=== PATIENT | female | born 1955 | race Caucasian/White ===

== ENCOUNTER 2022-04-02 19:25 | Inpatient (IN) | payer MEDICARE, OTHER ==
[~2022-04-02] VITALS: Ht 162.6 cm; Wt 76.2 kg
--- NOTE | 2022-04-02 19:45 | NUR ---
received from [facility] via ambulance alert and orientated right great toes black in color and with a foul smell gauze dressing on photo taken right dempsey with wound black with gauze dressing photo taken wound consult ordered doesn't remember the name of the medication for the right great toe infection she is taking texted COMPUTER PROGRAMMER ANALYST CHIO PATEL to make her aware the patient has arrived from [place] she has acknowledged the order
[2022-04-02 20:00] VITALS: BP 159/83
[2022-04-02 21:11] VITALS: BP 159/83
[2022-04-02] MEDS ORDERED: MORPHINE SULFATE INJ 2 MG/ML DISP.SYRIN IV PRN (23:30)
[2022-04-02] MEDS ORDERED: ZOLPIDEM TARTRATE 5 MG TABLET PO PRN (23:30)
[2022-04-02] MEDS ORDERED: ONDANSETRON HCL/PF 4 MG/2 ML VIAL IVP PRN (23:30)
[2022-04-02] MEDS ORDERED: Z GUARD REMEDY 4 OZ OINT TP PRN (23:30)
[2022-04-02] MEDS ORDERED: MAG HYDROX/AL HYDROX/SIMETH 30 ML UDC PO PRN (23:30)
[2022-04-02] MEDS ORDERED: MAGNESIUM HYDROXIDE 30 ML UDC PO PRN (23:30)
[2022-04-02] MEDS ORDERED: ACETAMINOPHEN 325 MG TABLET PO PRN (23:30)
[2022-04-02] MEDS: IV NS 0.9% 1,000 ML IV PRN (23:40)
[2022-04-02] MEDS: HYDROCODONE/APAP 10/325MG TABLET PO PRN (23:47)
[2022-04-03] MEDS ORDERED: VANCOMYCIN 1 GM VIAL ONE (01:18)
[2022-04-03] MEDS ORDERED: VANCOMYCIN 1 GM in IV D5W 250ml IV ONE (01:30)
[2022-04-03] MEDS ORDERED: CEFEPIME 1 GM VIAL ONE (01:38)
[2022-04-03] MEDS: CEFEPIME 1 GM in IV D5W 50 ML IV SCH ×2 (01:49→21:33)
--- NOTE | 2022-04-03 06:33 | NUR ---
RN CLOSING NOTES: ALERT AND ORIENTATED X4 ALARM INSTALLATION TECHNICIAN CHIO CAME TO SEE PATIENT LAST NIGHT RIGHT FOOT COOL TO TOUCH RIGHT GREAT TOE BLACK AND COLD TO TOUCH DRESSING CDI RIGHT LOWER LEG WOUND WITH ESHCAR WITH CHELSEA AREA RED SURRONDING MEDICATED X1 WITH NORCO AND EFFECTIVE PT SLEPT SHE STATES SHE CAN'T SLEEP D/T THE PATIENT IN THE 1ST BED "STINKS" AND PEOPLE AROUND ARE TOO NOISY WHEN ROUNDS MADE PT WAS ASLEEP EACH TIME RESP EVEN AND UN;ABORED VANCO 1ST DOSE GIVEN AND MAXIPIMI GIVEN ORDERED
[2022-04-03 07:00] VITALS: BP_SYST 100; BP_SYST 145; BP_DIAS 58; BP_DIAS 76
--- NOTE | 2022-04-03 07:10 | NUR ---
RN OPENING NOTES: PATIENT ALERT AND ORIENTATED X4 RIGHT FOOT COOL TO TOUCH RIGHT GREAT TOE BLACK AND COLD TO TOUCH DRESSING CDI RIGHT LOWER LEG WOUND WITH ESHCAR WITH CHELSEA AREA RED SURRONDING SAFETY PROTOCOLS IN PLACED, BED IN LOW POSITION, SIDE RAILS X2 UP, CALL LIGHT WITHIN REACH. WILL CONTINUE TO MONITOR THE PATIENT.
--- NOTE | 2022-04-03 08:52 | NUR ---
WOUND CARE CONSULT: PT PRESENTS WITH NECROTIC AREAS TO RT LOWER LEG (WITH ODOR), RT HEEL AND RT GREAT TOE, ALL PRESENT ON ADMISSION. DR NESS CALLED FOR DPM CONSULT. IN AGREEMENT WITH PLAN OF CARE.
[2022-04-03] MEDS ORDERED: CLIN300C12 PO (11:06)
[2022-04-03] MEDS ORDERED: CARV6.252 PO (11:06)
[2022-04-03] MEDS ORDERED: LEVO750T46 PO (11:06)
[2022-04-03 14:35] LABS: BASOPHILS % (AUTO) 0.2 % (0.0-2.0); EOSINOPHILS % (AUTO) 1.5 % (0.0-6.0); HEMATOCRIT 34 % (33-45); HEMOGLOBIN 10.7 g/dL (11.5-14.8); LYMPHOCYTES # (AUTO) 0.6 K/uL (0.8-4.8); LYMPHOCYTES % (AUTO) 6.4 % (20.0-44.0); MEAN CORPUSCULAR HGB CONC 32 g/dl (31.0-36.0); MEAN CORPUSCULAR VOLUME 81 fL (82-100); MONOCYTES # (AUTO) 0.7 K/uL (0.1-1.30); MONOCYTES % (AUTO) 7.6 % (2.0-12.0); NEUTROPHILS # (AUTO) 7.4 K/uL (1.8-8.9); NEUTROPHILS % (AUTO) 84.3 % (43.0-81.0); PLATELET COUNT (AUTO) 156 K/uL (150-450); RED BLOOD CELL COUNT(AUTO) 4.17 MIL/uL (4.0-5.2); WHITE BLOOD COUNT (AUTO) 8.8 K/uL (4.3-11.0)
[2022-04-03 15:02] LABS: CALCIUM, SERUM 8.1 mg/dL (8.5-10.1); CREATININE 0.8 mg/dL (0.6-1.3); POTASSIUM 3.2 mmol/L (3.5-5.1)
[2022-04-03] MEDS: HYDROCODONE/APAP 10/325MG TABLET PO PRN (15:45)
[2022-04-03] MEDS: PROSOURCE / PROSTAT (PYXIS) 30 ML UDC PO SCH (17:00)
[2022-04-03] MEDS: POVIDONE-IODINE OINT 28.4 GM TUBE TP SCH (18:50)
[2022-04-03] MEDS: VANCOMYCIN 1 GM in IV D5W 250 ML IV SCH (18:53)
--- NOTE | 2022-04-03 19:30 | NUR ---
MS RN OPENING NOTES - RECEIVED PATIENT LAYING IN BED AWAKE. A/OX 4. BREATHING EVEN AND NON-LABORED ON ROOM AIR. NOT IN APPARENT DISTRESS. DENIES PAIN AT THIS TIME. HAS LEFT HAND IV ACCESS #22G WITH NS RUNNING AT 75 ML/HR. NO S/S OF INFILTRATION NOTED. PER PATIENT, SHE USES A CANE AND WHEELCHAIR AT HOME. SHE ALSO REQUESTED FOR PUREWICK. SAFETY PRECAUTIONS IN PLACE: BED LOCKED AND IN LOW POSITION, SIDE RAILS UP X2, CALL LIGHT WITHIN REACH. WILL CONTINUE PLAN OF CARE.
--- NOTE | 2022-04-03 19:30 | NUR ---
MS RN OPENING NOTES - RECEIVED PATIENT LAYING IN BED AWAKE. A/O X4. BREATHING EVEN AND NON-LABORED ON ROOM AIR. NOT IN APPARENT DISTRESS. DENIES PAIN AT THIS TIME. HAS LEFT HAND IV ACCESS #22G WITH NS RUNNING AT 75 ML/HR. NO S/S OF INFILTRATION NOTED. RIGHT LOWER LEG AND TOES IN OPEN AIR. SAFETY PRECAUTIONS IN PLACE: BED LOCKED AND IN LOW POSITION, SIDE RAILS UP X2, CALL LIGHT WITHIN REACH. WILL CONTINUE PLAN OF CARE.
--- NOTE | 2022-04-03 19:35 | NUR ---
RN CLOSING NOTES: PATIENT ALERT AND ORIENTATED X4 RIGHT FOOT COOL TO TOUCH RIGHT GREAT TOE BLACK AND COLD TO TOUCH DRESSING CDI RIGHT LOWER LEG WOUND WITH ESHCAR WITH CHELSEA AREA RED SURRONDING MEDICATED X1 WITH NORCO AND EFFECTIVE,VANCO DOSE GIVEN AND ORDERED. ALL SAFETY PROTOCOLS IN PLACE, ENDORSED TO ONCOMING BACKING IN MACHINE TENDER RN FOR KATHIA.
[2022-04-03] MEDS: IV NS 0.9% 1,000 ML IV PRN (19:59)
[2022-04-03 20:00] VITALS: BP 138/74
--- NOTE | 2022-04-04 01:20 | NUR ---
CALLED X-RAY DEPT TO FOLLOW-UP ON THE RIGHT TIBIA/FIBULA/FOOT X-RAY ORDERED 04/03/22. SPOKE WITH FEMALE TECH AND SAID THEY WILL TAKE IT IN THE MORNING SINCE THEY ARE BUSY IN THE ER.
--- NOTE | 2022-04-04 03:52 | NUR ---
ASKED HOSPITALIST ANDREI IF WE WILL REPLACE THE POTASSIUM SINCE IT IS 3.2. NO NEW ORDER GIVEN.
[2022-04-04] MEDS: VANCOMYCIN 1 GM in IV D5W 250 ML IV SCH ×3 (04:24→17:00)
[2022-04-04 06:47] LABS: BASOPHILS % (AUTO) 0.3 % (0.0-2.0); EOSINOPHILS % (AUTO) 1.4 % (0.0-6.0); HEMATOCRIT 32 % (33-45); HEMOGLOBIN 10.4 g/dL (11.5-14.8); LYMPHOCYTES # (AUTO) 0.7 K/uL (0.8-4.8); LYMPHOCYTES % (AUTO) 8.4 % (20.0-44.0); MEAN CORPUSCULAR HGB CONC 33 g/dl (31.0-36.0); MEAN CORPUSCULAR VOLUME 79 fL (82-100); MONOCYTES # (AUTO) 0.7 K/uL (0.1-1.30); MONOCYTES % (AUTO) 8.7 % (2.0-12.0); NEUTROPHILS # (AUTO) 6.5 K/uL (1.8-8.9); NEUTROPHILS % (AUTO) 81.2 % (43.0-81.0); PLATELET COUNT (AUTO) 154 K/uL (150-450); RED BLOOD CELL COUNT(AUTO) 4.01 MIL/uL (4.0-5.2); WHITE BLOOD COUNT (AUTO) 8.1 K/uL (4.3-11.0)
[2022-04-04 07:00] VITALS: BP 82/56
[2022-04-04 07:01] LABS: CALCIUM, SERUM 8.1 mg/dL (8.5-10.1); CREATININE 0.7 mg/dL (0.6-1.3); PHOSPHORUS 2.9 mg/dL (2.5-4.9); POTASSIUM 2.9 mmol/L (3.5-5.1)
--- NOTE | 2022-04-04 07:01 | NUR ---
UNABLE TO INFUSE VANCO THE PATIENT'S IV IS CLOGGED AND NOT FLUSHING. WILL ENDORSE TO NEXT SHIFT TO GET AN ORDER FOR MIDLINE SINCE PATIENT IS A HARD STICK.
--- NOTE | 2022-04-04 07:05 | NUR ---
MS RN CLOSING NOTES - PATIENT SLEEPING IN BED, EASY TO AROUSE. NO SOB OR NOTED. NO ACUTE DISTRESS THROUGHOUT THE NIGHT. NO C/O PAIN OR DISCOMFORT AT THIS TIME. AFEBRILE. LEFT HAND IV ACCESS NOT WORKING AT THIS MOMENT. ALL DUE MEDS GIVEN AND NEEDS ATTENDED. SAFETY PRECAUTIONS MAINTAINED. WILL ENDORSE TO NEXT SHIFT FOR KATHIA.
--- NOTE | 2022-04-04 07:28 | NUR ---
ABLE TO INFUSE VANCO AT THIS TIME.
[2022-04-04 08:00] VITALS: BP 155/84
[2022-04-04] MEDS: PROSOURCE / PROSTAT (PYXIS) 30 ML UDC PO SCH ×3 (08:51→17:01)
[2022-04-04] MEDS: HYDROCODONE/APAP 10/325MG TABLET PO PRN ×2 (08:51→22:47)
[2022-04-04] MEDS: POVIDONE-IODINE OINT 28.4 GM TUBE TP SCH ×2 (08:52→17:01)
--- NOTE | 2022-04-04 08:52 | NUR ---
PATIENT POTASSIUM TRENDING DOWN FROM 3.2 TO 2.9. REPORTED TO MD. AWAITING NEW ORDERS. JAILENE Perez RN,BSN
[2022-04-04] MEDS ORDERED: POTASSIUM CHLORIDE 20 MEQ TAB.PRT.SR PO SCH (10:30)
[2022-04-04] MEDS ORDERED: POTASSIUM CL. PREMIX PERIPHER. 50 ML IV SCH (10:30)
--- NOTE | 2022-04-04 10:52 | NUR ---
PATIENT ASKED HOME ORGANIZER ABOUT COREG 6.25MG THAT SHE TAKES DAILY AT HOME. HOME ORGANIZER REPORTED TO . AWAITING NEW ORDER. JAILENE Perez RN, BSN
--- NOTE | 2022-04-04 11:00 | NUR ---
NEW ORDERS IN PLACE TO ADMIN POTASSIUM 10MEQ VIA IV X6. AWAITING MIDLINE INSERTION. JAILENE Perez RN, BSN
--- NOTE | 2022-04-04 12:10 | NUR ---
NEW MIDLINE INSERTION TO SMOOTH. POTASSIUM IV CURRENTLY GOING.
[2022-04-04] MEDS: POTASSIUM CL. PREMIX PERIPHER. 50 ML IV SCH ×6 (12:19→18:18)
[2022-04-04 16:00] VITALS: BP 159/85
[2022-04-04] MEDS ORDERED: IODIXANOL 150 ML IV ONE ×2 (16:29→18:21)
[2022-04-04] MEDS ORDERED: IV NS 0.9% 1,000 ML ONE (16:29)
[2022-04-04] MEDS ORDERED: IV SET PRIMARY PUMP SET 1 EA INFUS.SET MC ONE (16:29)
[2022-04-04] MEDS ORDERED: LIDOCAINE HCL/MPF 1% 30 ML VIAL IJ ONE (16:30)
[2022-04-04] MEDS ORDERED: FENTANYL PF 100MCG/2ML AMPUL ONE (17:13)
[2022-04-04] MEDS ORDERED: MIDAZOLAM HCL 2 MG/2ML VIAL ONE (17:13)
[2022-04-04] MEDS ORDERED: HEPARIN SODIUM, PORCINE 5000 UNITS/1 ML VIAL ONE (17:50)
[2022-04-04] MEDS ORDERED: HEPARIN SODIUM, PORCINE 1,000 UNIT/ML VIAL ONE (17:51)
[2022-04-04] MEDS ORDERED: IODIXANOL 320MG/ML 100 ML IV ONE (17:57)
[2022-04-04] MEDS ORDERED: CLOPIDOGREL BISULFATE 300 MG TABLET ONE (18:18)
[2022-04-04] MEDS ORDERED: VERAPAMIL HCL IV 5 MG/2 ML VIAL ONE (18:35)
--- NOTE | 2022-04-04 19:45 | NUR ---
RN OPENING NOTE RECEIVED PATIENT IN BED FROM OR CLINICAL NURSING MANAGER S/P STENT PLACEMENT. PT IS AWAKE, A/O X 4 ABLE TO VERBALIZE NEEDS. ON ROOM AIR, TOLERATING WELL, SATING @ >95%. NO S/SX OF ACUTE RESPI DISTRESS NOTED AT THIS TIME. BREATHING IS EVEN AND UNLABORED. IV ACCESS NOTED ON SMOOTH ML AND LEFT HAND #22G. PATENT, INTACT AND FLUSHES WELL. NO S/SX OF INFILTRATION NOTED. GANGRENE NOTED ON RIGHT LOWER LEG AND R TOES. ALL SAFETY PRECAUTIONS IN PLACE: BED LOCKED AND IN LOW POSITION, SIDE RAILS UP X2, CALL LIGHT WITHIN REACH. WILL CONTINUE TO MONITOR.
--- NOTE | 2022-04-04 20:05 | NUR ---
RN NOTE PUREWICK CATH USED PER PT'S REQUEST. CONNECTED TO SUCTION.
[2022-04-04] MEDS: IV NS 0.9% 1,000 ML IV PRN (20:54)
[2022-04-04] MEDS ORDERED: ATROPINE SULFATE 1 MG/10 ML DISP.SYRIN IV ONE (21:00)
--- NOTE | 2022-04-04 21:00 | NUR ---
RN NOTE PT COMPLAINING OF PAIN ON HER R HEEL. MORPHINE GIVEN ORDERED. PT NOTED TO HAVE SBP >160. HR >100. INFORMED MD FORMING MACHINE UPKEEP MECHANIC, APRESOLINE IV 10 MG IVP X 1. ORDERED. WILL CARRY OUT.
--- NOTE | 2022-04-04 21:10 | NUR ---
RN NOTE DR. DIAS NOTIFIED REGARDING PT'S HIGH BP AND HR. THE REST OF VS WNL. PT IS CALM AND SHOWING NO DISTRESS. WILL CONTINUE TO MONITOR.
[2022-04-04] MEDS: CEFEPIME 1 GM in IV D5W 50 ML IV SCH (21:52)
[2022-04-04] MEDS ORDERED: hydrALAZINE HCL IV 20 MG VIAL IV ONE (22:00)
--- NOTE | 2022-04-04 23:00 | NUR ---
RN NOTE SHEATH REMOVED. MINIMAL BLEEDING NOTED. MANUAL PRESSURE APPLIED FOR 15 MINUTES. WEAK PEDAL PULSE NOTED. WILL CONTINUE TO MONITOR.
[2022-04-05] VITALS (12 sets, daily range): BP systolic 99–161; BP diastolic 61–81
[2022-04-05 04:39] LABS: BASOPHILS # (AUTO) 0.1 K/uL (0.0-0.2); BASOPHILS % (AUTO) 0.7 % (0.0-2.0); EOSINOPHILS % (AUTO) 0.8 % (0.0-6.0); HEMATOCRIT 34 % (33-45); HEMOGLOBIN 11.2 g/dL (11.5-14.8); LYMPHOCYTES # (AUTO) 0.6 K/uL (0.8-4.8); LYMPHOCYTES % (AUTO) 6.8 % (20.0-44.0); MEAN CORPUSCULAR HGB CONC 33 g/dl (31.0-36.0); MEAN CORPUSCULAR VOLUME 80 fL (82-100); MONOCYTES # (AUTO) 0.8 K/uL (0.1-1.30); MONOCYTES % (AUTO) 9.3 % (2.0-12.0); NEUTROPHILS # (AUTO) 6.8 K/uL (1.8-8.9); NEUTROPHILS % (AUTO) 82.4 % (43.0-81.0); PLATELET COUNT (AUTO) 172 K/uL (150-450); RED BLOOD CELL COUNT(AUTO) 4.29 MIL/uL (4.0-5.2); WHITE BLOOD COUNT (AUTO) 8.2 K/uL (4.3-11.0)
[2022-04-05] MEDS: VANCOMYCIN 1 GM in IV D5W 250 ML IV SCH ×2 (04:40→17:35)
[2022-04-05 04:51] LABS: CREATININE 0.7 mg/dL (0.6-1.3); PHOSPHORUS 3.4 mg/dL (2.5-4.9); POTASSIUM 3.6 mmol/L (3.5-5.1)
--- NOTE | 2022-04-05 06:33 | NUR ---
RN CLOSING NOTE PT REMAINED STABLE THE WHOLE NIGHT, NO SIGNIFICANT CHANGE NOTED. DRESSING CHANGED IN THE STENT INSERTION SITE, CLEAN , DRY AND NO BLEEDING. ALL VS WNL. O2 SAT @ >95%. ASSOCIATE MERCHANDISER READS NSR. ALL SAFETY MEASURES MAINTAINED. HOB ELEVATED @ 30 DEG, BED LOCKED, IN LOW POSITION. CALL LIGHT WITHIN REACH. WILL ENDORSE TO AM SHIFT NURSE FOR KATHIA.
--- NOTE | 2022-04-05 07:05 | NUR ---
MATH PROFESSOR OPENING NOTE: RECEIVED PT. IN BED, AWAKE, AOX4, NO COMPLAINTS OF PAIN/DISCOMFORT AT THIS TIME. S/P STENT PLACEMENT YESTERDAY. ON RA, NO S/S OF RESPIRATORY DISTRESS. REAL ESTATE REPRESENTATIVE READS NSR AT THIS TIME. WEAK PULSES NOTED ON L AND R DORSALIS PEDIS VIA DOPPLER, UPPER EXTREMITIES CAP REFILL < 3 SECS. ON PUREWICK, DRAINING CLEAR YELLOW URINE IN CONTAINER. R LOWER LEG DISCOLORATION AND WOUND NOTED WELL NECROTIC R GREAT TOE. WILL DO WOUND TREATMENT ORDERED. PT. HAS SMOOTH MIDLINE WITH NS RUNNING AT 75 ML/HR; ALSO HAS L HAND #22G, PATENT AND SALINE LOCKED. IV SITE DRESSINGS C/D/I WITH NO S/S OF INFILTRATION. SAFETY MEASURES IN PLACE: BED IN LOWEST AND LOCKED POSITION, HOB ELEVATED AT 30 DEGREES, CALL LIGHT WITHIN REACH, SIDE RAILS UPX2, BED ALARM ON. WILL ENCOURAGE FREQUENT REPOSITIONING IN BED AT LEAST Q2H. WILL CONTINUE TO MONITOR PT. FOR ANY CHANGES.
[2022-04-05] MEDS: CLOPIDOGREL BISULFATE 75 MG TABLET PO SCH (08:49)
[2022-04-05] MEDS: PROSOURCE / PROSTAT (PYXIS) 30 ML UDC PO SCH ×3 (08:50→17:34)
[2022-04-05] MEDS: POVIDONE-IODINE OINT 28.4 GM TUBE TP SCH ×2 (08:54→17:33)
[2022-04-05] MEDS: IV NS 0.9% 1,000 ML IV PRN (10:35)
--- NOTE | 2022-04-05 11:30 | NUR ---
ACCOUNTING ASSOCIATE NOTE: DR. CAT'S REELING MACHINE SETUP OPERATOR AT BEDSIDE. MENTIONED PT.'S BP OF SBP AROUND 140'S TO 150'S. WAITING FOR ORDERS. WILL CONTINUE TO MONITOR PT.'S HEMODYNAMIC STATUS.
--- NOTE | 2022-04-05 12:40 | NUR ---
BANANA HANDLERLAB SUPPORT SERVICE TECH NOTE: PT. TRANSFERRED TO TELE ROOM # 323-2 VIA HOSPITAL BED. REPORT GIVEN T0 CERTIFIED GREEN BUILDING ENGINEERASHIA CARTER AT BEDSIDE. PT. IN BED, AWAKE, AOX4, NO COMPLAINTS OF PAIN/DISCOMFORT AT THIS TIME. S/P STENT PLACEMENT YESTERDAY. ON RA, NO S/S OF RESPIRATORY DISTRESS. HOUSEMAN READS NSR SO FAR THIS SHIFT. WEAK PULSES NOTED ON L AND R DORSALIS PEDIS VIA DOPPLER, UPPER EXTREMITIES CAP REFILL < 3 SECS. ON PUREWICK, DRAINED 150 ML CLEAR YELLOW URINE SO FAR. WOUND TREATMENT ORDERED. PT. HAS SMOOTH MIDLINE WITH NS RUNNING AT 75 ML/HR; ALSO HAS L HAND #22G, PATENT AND SALINE LOCKED. IV SITE DRESSINGS C/D/I WITH NO S/S OF INFILTRATION. SAFETY MEASURES MAINTAINED: BED IN LOWEST AND LOCKED POSITION, HOB ELEVATED AT 30 DEGREES, CALL LIGHT WITHIN REACH, SIDE RAILS UPX2, BED ALARM ON. ENCOURAGED FREQUENT REPOSITIONING IN BED AT LEAST Q2H. PT. BELONGINGS, CHART AND MEDICATIONS HANDED OVER TO CERTIFIED GREEN BUILDING ENGINEERASHIA CARTER AT BEDSIDE. ENDORSED CONTINUITY OF CARE. Addendum: 04/05/22 at 1245 by NATALI MARINELLI RN CORRECTION: PT. WENT TO TELE ROOM 321-2.
--- NOTE | 2022-04-05 13:00 | NUR ---
BLOOD SPLATTER ANALYST NOTE RECEIVED PATIENT FROM ICU NURSE, TRANSFERRED ON A BED ACCOMPANIED BY 2 NURSES; PATIENT IS ALERT AND ORIENTED X 4, ABLE TO MAKE NEEDS KNOWN; ON ROOM AIR BREATHING EVENLY AND NO RESPIRATORY DISTRESS NOTED; WITH MIDLINE ACCESS ON SMOOTH WITH IV NS RUNNIGN AT 75 ML/HE INFUSING WELL. AND IV ACCESS ON LEFT HAND G22 -SALINE LOCK; WITH PUREWICK HOOKED DRAINING TO YELLOW COLORED URINE; COMFORT MEASURES PROVIDED. WITH WOUND ON THE RIGHT LOWER EXTREMITY, TREATMENT DONE BY ICU NURSE. SAFETY PRECAUTIONS IMPLEMENTED, BED IN LOW POSITION, LOCKED, SIDE RAILS UP X 2, CALL LIGHT WITHIN REACH; WILL CONTINUE WITH PLAN OF CARE.
--- NOTE | 2022-04-05 17:30 | NUR ---
AGILE TESTER NOTE PATIENT WITH EPISODES OF ELEVATED BP. PATIENT CLAIMS TO HAVE BETA ASHISH AT HOME. HOSPITALIST EMORY NOTIFIED WITH ORDERS READ BACK AND VERIFIED. STARTED PATIENT'S BP MEDICATION ORDERED. IN STABLE CONDITION.
[2022-04-05] MEDS: CARVEDILOL 6.25 MG TABLET PO SCH (17:34)
--- NOTE | 2022-04-05 19:00 | NUR ---
AB INITIO ETL DEVELOPER NOTE PATIENT IS ALERT AND ORIENTED X 4, ABLE TO MAKE NEEDS KNOWN; ON ROOM AIR BREATHING EVENLY AND NO RESPIRATORY DISTRESS NOTED; WITH MIDLINE ACCESS ON SMOOTH WITH IV NS RUNNIGN AT 75 ML/HE INFUSING WELL. AND IV ACCESS ON LEFT HAND G22 -SALINE LOCK; WITH PUREWICK HOOKED DRAINING TO YELLOW COLORED URINE; COMFORT MEASURES PROVIDED. WITH WOUND ON THE RIGHT LOWER EXTREMITY, TREATMENT DONE BY ICU NURSE. SAFETY PRECAUTIONS IMPLEMENTED, BED IN LOW POSITION, LOCKED, SIDE RAILS UP X 2, CALL LIGHT WITHIN REACH; WILL ENDORSE TO NEXT SHIFT FOR CONTINUTIY OF CARE. IN STABLE CONDITION.
--- NOTE | 2022-04-05 19:30 | NUR ---
DRUPAL DEVELOPER OPENING NOTE RECEIVED PATIENT FROM AM NURSE; PATIENT IS ALERT AND ORIENTED X 4, ABLE TO MAKE NEEDS KNOWN; ON ROOM AIR BREATHING EVENLY AND NO RESPIRATORY DISTRESS NOTED; WITH MIDLINE ACCESS ON SMOOTH AND IV ACCESS ON LEFT HAND G22 -SALINE LOCK; WITH PUREWICK HOOKED DRAINING TO YELLOW COLORED URINE; ENCOURAGED VERBALIZATION OF NEEDS; SAFETY PRECAUTIONS IMPLEMENTED, BED IN LOW POSITION, LOCKED, SIDE RAILS UP X 2, CALL LIGHT WITHIN REACH; WILL CONTINUE TO MONITOR THROUGHOUT SHIFT
[2022-04-05] MEDS: CEFEPIME 1 GM in IV D5W 50 ML IV SCH (21:35)
[2022-04-06] VITALS: BP 99/57
[2022-04-06] MEDS: IV NS 0.9% 1,000 ML IV PRN ×2 (02:09→17:52)
[2022-04-06 04:00] VITALS: BP 129/67
[2022-04-06 04:21] LABS: BASOPHILS % (AUTO) 0.4 % (0.0-2.0); EOSINOPHILS % (AUTO) 2.3 % (0.0-6.0); HEMATOCRIT 32 % (33-45); HEMOGLOBIN 10.4 g/dL (11.5-14.8); LYMPHOCYTES # (AUTO) 0.7 K/uL (0.8-4.8); LYMPHOCYTES % (AUTO) 8.3 % (20.0-44.0); MEAN CORPUSCULAR HGB CONC 32 g/dl (31.0-36.0); MEAN CORPUSCULAR VOLUME 80 fL (82-100); MONOCYTES # (AUTO) 0.8 K/uL (0.1-1.30); MONOCYTES % (AUTO) 9.9 % (2.0-12.0); NEUTROPHILS # (AUTO) 6.4 K/uL (1.8-8.9); NEUTROPHILS % (AUTO) 79.1 % (43.0-81.0); PLATELET COUNT (AUTO) 172 K/uL (150-450); RED BLOOD CELL COUNT(AUTO) 4.04 MIL/uL (4.0-5.2)
[2022-04-06 04:38] LABS: CALCIUM, SERUM 7.9 mg/dL (8.5-10.1); CREATININE 0.7 mg/dL (0.6-1.3); PHOSPHORUS 2.8 mg/dL (2.5-4.9)
[2022-04-06] MEDS: VANCOMYCIN 1 GM in IV D5W 250 ML IV SCH (05:04)
--- NOTE | 2022-04-06 07:03 | NUR ---
RAMPMAN CLOSING NOTE PATIENT IS ALERT AND ORIENTED X 4, ABLE TO MAKE NEEDS KNOWN; ON ROOM AIR, TOLERATING WELL, BREATHING EVENLY AND NO RESPIRATORY DISTRESS NOTED; WITH MIDLINE ACCESS ON SMOOTH AND IV ACCESS ON LEFT HAND G22 -SALINE LOCK, INTACT AND PATENT; WITH PUREWICK HOOKED DRAINING TO YELLOW COLORED URINE; ADMINISTERED MEDICATIONS PRESCRIBED; PATIENT'S NEEDS ATTENDED; MONITORED ACCORDINGLY' SAFETY PRECAUTIONS IMPLEMENTED, BED IN LOW POSITION, LOCKED, SIDE RAILS UP X 2, CALL LIGHT WITHIN REACH; WILL ENDORSE TO AM NURSE FOR KATHIA.
[2022-04-06] MEDS: CLOPIDOGREL BISULFATE 75 MG TABLET PO SCH (09:03)
[2022-04-06] MEDS: PROSOURCE / PROSTAT (PYXIS) 30 ML UDC PO SCH ×3 (09:03→17:23)
[2022-04-06] MEDS: POVIDONE-IODINE OINT 28.4 GM TUBE TP SCH ×2 (09:03→17:23)
[2022-04-06] MEDS: CARVEDILOL 6.25 MG TABLET PO SCH ×2 (09:16→17:28)
[2022-04-06] MEDS ORDERED: POTASSIUM CHLORIDE 20 MEQ TAB.PRT.SR PO SCH (10:00)
[2022-04-06] MEDS: POTASSIUM CHLORIDE 20 MEQ TAB.PRT.SR PO SCH ×3 (10:11→12:32)
[2022-04-06] MEDS: VANCOMYCIN 1.25 GM in IV D5W 250 ML IV SCH (17:29)
--- NOTE | 2022-04-06 19:30 | NUR ---
PIPELAYER CLOSING NOTE PATIENT IN BED AWAKE ; A/O X 4, ABLE TO MAKE NEEDS KNOWN; ON ROOM AIR WITH NO SOB OR DISTRESS NOTED ; WITH MIDLINE ACCESS ON SMOOTH WITH NS @75 ML /H RUNNING WELL AND IV ACCESS ON LEFT HAND G22 -SALINE LOCK; WITH PUREWICK HOOKED DRAINING TO YELLOW COLORED URINE; ENCOURAGED VERBALIZATION OF NEEDS; ALL DUE MEDS GIVEN ORDERED , SAFETY PRECAUTIONS IMPLEMENTED, BED IN LOW POSITION, LOCKED, SIDE RAILS UP X 2, CALL LIGHT WITHIN REACH; WOUND TREATMENT DONE AND ENDORSED TO NEXT SHIFT
--- NOTE | 2022-04-06 19:30 | NUR ---
MASTER MERCHANDISER OPENING NOTE RECEIVED PATIENT FROM AM NURSE; PATIENT IS ALERT AND ORIENTED X 4, ABLE TO MAKE NEEDS KNOWN; ON ROOM AIR TOLERATING WELL AND NO RESPIRATORY DISTRESS NOTED; HOOKED TO BEST WORKER; WITH MIDLINE ACCESS ON SMOOTH AND IV ACCESS ON LEFT HAND G22 -SALINE LOCK, INTACT AND PATENT; WITH PUREWICK HOOKED DRAINING TO YELLOW COLORED URINE; ENCOURAGED VERBALIZATION OF NEEDS; SAFETY PRECAUTIONS IMPLEMENTED, BED IN LOW POSITION, LOCKED, SIDE RAILS UP X 3, CALL LIGHT WITHIN EASY REACH; WILL CONTINUE TO MONITOR THROUGHOUT SHIFT
[2022-04-06 20:30] VITALS: BP 133/70
[2022-04-06] MEDS: CEFEPIME 1 GM in IV D5W 50 ML IV SCH (21:26)
[2022-04-06 23:35] VITALS: BP 128/64
[2022-04-07 04:04] VITALS: BP 126/69
[2022-04-07] MEDS: VANCOMYCIN 1.25 GM in IV D5W 250 ML IV SCH ×2 (04:50→16:59)
--- NOTE | 2022-04-07 06:40 | NUR ---
FIREFIGHTER CLOSING NOTE PATIENT IN BED, ALERT AND ORIENTED X 4, ON ROOM AIR, TOLERATING WELL AND NO RESPIRATORY DISTRESS NOTED; ON TELE MONITORING CURRENTLY READING SINUS RHYTHM 80-90S BPM; WITH MIDLINE ACCESS ON SMOOTH AND IV ACCESS ON LEFT HAND G22 -SALINE LOCK, BOTH ARE INTACT AND PATENT; WITH PUREWICK IN PLACE DRAINING TO YELLOW COLORED URINE; ADMINISTERED MEDICATIONS PRESCRIBED; PATIENT'S NEEDS ATTENDED; MONITORED ACCORDINGLY; SAFETY PRECAUTIONS IMPLEMENTED, BED IN LOW POSITION, LOCKED, SIDE RAILS UP X 2, CALL LIGHT WITHIN REACH; WILL ENDORSE TO AM NURSE FOR KATHIA.
[2022-04-07 07:03] LABS: CREATININE 0.7 mg/dL (0.6-1.3); POTASSIUM 3.3 mmol/L (3.5-5.1)
--- NOTE | 2022-04-07 07:40 | NUR ---
VISUAL MERCHANDISING COORDINATOR OPENING NOTE RECEIVED PATIENT IN BED ASLEEP BUT AROUSABLE ; A/O X 4, ABLE TO MAKE NEEDS KNOWN; ON ROOM AIR WITH NO SOB OR DISTRESS NOTED ; WITH MIDLINE ACCESS ON SMOOTH WITH NS @75 ML /H RUNNING WELL AND IV ACCESS ON LEFT HAND G22 -SALINE LOCK; WITH PUREWICK HOOKED DRAINING TO YELLOW COLORED URINE; ENCOURAGED VERBALIZATION OF NEEDS; SAFETY PRECAUTIONS IMPLEMENTED, BED IN LOW POSITION, LOCKED, SIDE RAILS UP X 2, CALL LIGHT WITHIN REACH; WILL CONTINUE TO MONITOR THROUGHOUT SHIFT
[2022-04-07 08:00] VITALS: BP 144/70
[2022-04-07] MEDS: PROSOURCE / PROSTAT (PYXIS) 30 ML UDC PO SCH ×3 (09:23→16:58)
[2022-04-07] MEDS: CARVEDILOL 6.25 MG TABLET PO SCH ×2 (09:24→16:58)
[2022-04-07] MEDS: CLOPIDOGREL BISULFATE 75 MG TABLET PO SCH (09:24)
[2022-04-07] MEDS ORDERED: POTASSIUM CHLORIDE 20 MEQ TAB.PRT.SR PO ONE (10:00)
[2022-04-07] MEDS: POVIDONE-IODINE OINT 28.4 GM TUBE TP SCH ×2 (10:16→16:57)
[2022-04-07] MEDS: IV NS 0.9% 1,000 ML IV PRN (13:23)
[2022-04-07 16:00] VITALS: BP 133/71
--- NOTE | 2022-04-07 19:05 | NUR ---
BELL MAKER CLOSING NOTES PATIENT IN BED AWAKE ; A/O X 4, ABLE TO MAKE NEEDS KNOWN; ON ROOM AIR WITH NO SOB OR DISTRESS NOTED ; WITH MIDLINE ACCESS ON SMOOTH WITH NS @75 ML /H RUNNING WELL AND IV ACCESS ON LEFT HAND G22 -SALINE LOCK; WITH PUREWICK HOOKED DRAINING TO YELLOW COLORED URINE; ENCOURAGED VERBALIZATION OF NEEDS; ALL DUE MEDS GIVEN ORDERED , SAFETY PRECAUTIONS PROVIDED , BED IN LOW POSITION, LOCKED, SIDE RAILS UP X 2, CALL LIGHT WITHIN REACH; WILL ENDORSED TO NEXT SHIFT
--- NOTE | 2022-04-07 19:43 | NUR ---
FUR EXAMINER OPENING NOTES; RECEIVED PATIENT IN BED AWAKE, A/OX 4, ABLE TO MAKE NEEDS KNOWN; ON ROOM AIR LUIS F WELL,SATTING 97%,NO SIGN SOB/DISTRESS NOTED,NO COMPLAIN OF PAIN/DISCOMFORT AT THIS TIME,WITH MIDLINE ACCESS ON SMOOTH WITH NS @75 ML /H RUNNING WELL AND IV ACCESS ON LEFT HAND G22 -SALINE LOCK,WITH PUREWICK HOOKED DRAINING TO YELLOW COLORED URINE,SAFETY PRECAUTIONS PROVIDED , BED IN LOW POSITION, LOCKED, SIDE RAILS UP X 2, CALL LIGHT WITHIN REACH; WILL CONTINUE TO MONITOR.
[2022-04-07 20:00] VITALS: BP 133/67
[2022-04-07] MEDS: CEFEPIME 1 GM in IV D5W 50 ML IV SCH (21:14)
[2022-04-08 04:08] LABS: CALCIUM, SERUM 7.8 mg/dL (8.5-10.1); CREATININE 0.7 mg/dL (0.6-1.3); POTASSIUM 3.3 mmol/L (3.5-5.1)
[2022-04-08 05:00] VITALS: BP 118/69
[2022-04-08] MEDS: VANCOMYCIN 1.25 GM in IV D5W 250 ML IV SCH (05:00)
--- NOTE | 2022-04-08 05:20 | NUR ---
RN NOTE; I CALLED [facility] SPOKE TO PAM SAUNDERS TROUGH 23,HOLD O5OO FAUSTO.[facility] ADJUST.
[2022-04-08] MEDS: IV NS 0.9% 1,000 ML IV PRN ×2 (05:38→22:58)
--- NOTE | 2022-04-08 06:40 | NUR ---
OUTPATIENT CODER CLOSING NOTES; PATIENT IN BED AWAKED AOX4,ABLE TO MAKE NEEDS KNOWN; ON ROOM AIR LUIS F WELL,SATTING 98%,NO SIGN SOB/DISTRESS NOTED,NO COMPLAIN OF PAIN/DISCOMFORT DURING SHIFT,DUE MEDS GIVEN ORDER,ALL NEEDS ATTENDED,WITH MIDLINE ACCESS ON SMOOTH WITH NS 75ML/HR,IV ACCESS ON LEFT HAND G22 SALINE LOCK,WITH PUREWICK HOOKED DRAINING TO YELLOW COLORED URINE OUT 700ML,SAFETY PRECAUTIONS PROVIDED , BED IN LOW POSITION, LOCKED, SIDE RAILS UP X 2, CALL LIGHT WITHIN REACH; WILL ENDORSED TO NEXT SHIFT.
[2022-04-08 07:00] VITALS: BP 140/71
--- NOTE | 2022-04-08 07:14 | NUR ---
PULPER OPERATOR OPENING NOTES RECEIVED PATIENT SLEEPING IN BED, A/Ox4, ABLE TO MAKE NEEDS KNOWN. ON ROOM AIR, NO S/S OF RESPIRATORY DISTRESS. PATIENT IV ACCESS SMOOTH MIDLINE RUNNING NS @75 ML/HR, INTACT AND PATENT. PATIENT CONTINENT HAS PUREWICK DRAINING CLEAR YELLOW URINE. ON TELE MONITORING SHOWING SINUS RHYTHM HR 86. NO S/S OF CHEST PAIN OR DISCOMFORT. SKIN ISSUE: R LOWER LEG WOUND, R GREAT TOE GANGRENE. SAFETY MEASURES IN PLACE: BED LOCKED AND IN LOWEST POSITION, HOB ELEVATED, CALL LIGHT WITHIN REACH, SIDE RAILS UPx2. WILL CONTINUE TO MONITOR.
[2022-04-08] MEDS: CARVEDILOL 6.25 MG TABLET PO SCH ×2 (09:26→16:21)
[2022-04-08] MEDS: PROSOURCE / PROSTAT (PYXIS) 30 ML UDC PO SCH ×3 (09:26→16:21)
[2022-04-08] MEDS: CLOPIDOGREL BISULFATE 75 MG TABLET PO SCH (09:26)
[2022-04-08] MEDS: POVIDONE-IODINE OINT 28.4 GM TUBE TP SCH ×2 (09:27→16:22)
[2022-04-08] MEDS: POTASSIUM CL. PREMIX PERIPHER. 50 ML IV SCH ×2 (09:28→10:38)
[2022-04-08] MEDS: VANCOMYCIN 1 GM in IV D5W 250ml IV SCH ×2 (09:44→21:07)
[2022-04-08] MEDS: HYDROCODONE/APAP 10/325MG TABLET PO PRN (14:12)
--- NOTE | 2022-04-08 14:14 | NUR ---
RN NOTES PATIENT COMPLAINED OF PAIN OF R FOOT. PAIN 5/10, PRN NARCO ADMINISTERED WILL CONTINUE TO MONITOR.
--- NOTE | 2022-04-08 18:51 | NUR ---
LEGAL EXAMINER CLOSING NOTES PATIENT SLEEPING IN BED, A/Ox4, ABLE TO MAKE NEEDS KNOWN. STABLE ON ROOM AIR, NO S/S OF RESPIRATORY DISTRESS. PATIENT IV ACCESS SMOOTH MIDLINE RUNNING NS @75 ML/HR, INTACT AND PATENT. PATIENT CONTINENT HAS PUREWICK DRAINING CLEAR YELLOW URINE. ON TELE MONITORING SHOWING SINUS RHYTHM HR 90. NO S/S OF CHEST PAIN OR DISCOMFORT. SKIN ISSUE: R LOWER LEG WOUND, R GREAT TOE GANGRENE. SAFETY MEASURES MAINTAINED: BED LOCKED AND IN LOWEST POSITION, HOB ELEVATED, CALL LIGHT WITHIN REACH, SIDE RAILS UPx2. WILL ENDORSE TO NEXT SHIFT ANY KATHIA.
--- NOTE | 2022-04-08 19:30 | NUR ---
NEONATAL SPECIALIST OPENING NOTES; RECEIVED PATIENT IN BED AWAKE, PATIENT IS A/OX 4, ABLE TO MAKE NEEDS KNOWN;ON TELE MONITOR AND READING SR. ON ROOM AIR AND TOLERATING WELL,O2 SAT NOTED 96% ,NO SIGN SOB/DISTRESS NOTED,NO COMPLAIN OF PAIN/DISCOMFORT AT THIS TIME,MIDLINE ACCESS ON SMOOTH INTACT RUNNING NS @75 ML /HR. IV ACCESS ON LEFT HAND G22 -SALINE LOCK.PUREWICK INTACT AND DRAINING TO YELLOW COLORED URINE. ALL SAFETY PRECAUTIONS IN PLACE. BED IN THE LOW POSITION AND LOCKED, SIDE RAILS UP X 2, CALL LIGHT AND TABLE IN EASY REACH; WILL CONTINUE TO MONITOR CLOSELY.
[2022-04-08 20:00] VITALS: BP 131/68
[2022-04-08] MEDS: CEFEPIME 1 GM in IV D5W 50 ML IV SCH (22:13)
[2022-04-09] VITALS: BP 128/76
[2022-04-09 05:00] VITALS: BP 142/72
[2022-04-09 06:29] LABS: BASOPHILS % (AUTO) 0.5 % (0.0-2.0); EOSINOPHILS % (AUTO) 3.3 % (0.0-6.0); HEMATOCRIT 29 % (33-45); HEMOGLOBIN 9.5 g/dL (11.5-14.8); LYMPHOCYTES # (AUTO) 0.6 K/uL (0.8-4.8); MEAN CORPUSCULAR HGB CONC 33 g/dl (31.0-36.0); MEAN CORPUSCULAR VOLUME 79 fL (82-100); MONOCYTES # (AUTO) 0.8 K/uL (0.1-1.30); MONOCYTES % (AUTO) 13.6 % (2.0-12.0); NEUTROPHILS # (AUTO) 4.4 K/uL (1.8-8.9); NEUTROPHILS % (AUTO) 72.6 % (43.0-81.0); PLATELET COUNT (AUTO) 161 K/uL (150-450); RED BLOOD CELL COUNT(AUTO) 3.63 MIL/uL (4.0-5.2); WHITE BLOOD COUNT (AUTO) 6.1 K/uL (4.3-11.0)
--- NOTE | 2022-04-09 06:41 | NUR ---
SHOE ASSOCIATE CLOSING NOTES; PATIENT IN BED AWAKE, PATIENT IS A/OX 4, ABLE TO MAKE NEEDS KNOWN;ON TELE MONITOR AND READING SR 91. ON ROOM AIR AND TOLERATING WELL,O2 SAT NOTED 96% ,NO SIGN SOB/DISTRESS NOTED,NO COMPLAIN OF PAIN/DISCOMFORT AT THIS TIME,MIDLINE ACCESS ON SMOOTH INTACT RUNNING NS @75 ML /HR. IV ACCESS ON LEFT HAND G22 -SALINE LOCK.PUREWICK INTACT AND DRAINING TO YELLOW COLORED URINE.ALL DUE MEDS GIVEN ORDERED. ALL SAFETY PRECAUTIONS IN PLACE. BED IN THE LOW POSITION AND LOCKED, SIDE RAILS UP X 2, CALL LIGHT AND TABLE IN EASY REACH; WILL ENDORSE FOR KATHIA.
[2022-04-09 06:43] LABS: CALCIUM, SERUM 7.9 mg/dL (8.5-10.1); CREATININE 0.6 mg/dL (0.6-1.3); PHOSPHORUS 3.3 mg/dL (2.5-4.9); POTASSIUM 3.3 mmol/L (3.5-5.1)
--- NOTE | 2022-04-09 07:25 | NUR ---
LIME SLUDGE MIXER OPENING NOTES RECEIVED PT IN BED, A/OX 4, ABLE TO MAKE NEEDS KNOWN, ON ROOM AIR WITHOUT DIFFICULTY. TELEMONITORING SHOWING SR 90S WITH PVCS AND PAT. NOT IN ANY APPARENT SOB OR DISTRESS NOTED, DENIES COMPLAINTS OF PAIN OR DISCOMFORT AT THIS TIME. IV ACCESS THROUGH MIDLINE ON SMOOTH, INTACT RUNNING NS @75 ML /HR. ANOTHER IV ACCESS ON LEFT HAND 22G# SALINE LOCKED. ON PUREWICK, INTACT AND DRAINING LIGHTYELLOW COLORED URINE. SAFETY PRECAUTIONS IN PLACE. BED IN THE LOWEST AND LOCKED POSITION AND SIDE RAILS UP X 2, CALL LIGHT AND TRAY TABLE WITHIN EASY REACH REACH. WILL CONTINUE TO MONITOR.
[2022-04-09 08:31] VITALS: BP 126/60
[2022-04-09] MEDS: POVIDONE-IODINE OINT 28.4 GM TUBE TP SCH ×2 (09:34→16:39)
[2022-04-09] MEDS: PROSOURCE / PROSTAT (PYXIS) 30 ML UDC PO SCH ×3 (09:35→16:39)
[2022-04-09] MEDS: CARVEDILOL 6.25 MG TABLET PO SCH ×2 (09:35→16:43)
[2022-04-09] MEDS: CLOPIDOGREL BISULFATE 75 MG TABLET PO SCH (09:35)
--- NOTE | 2022-04-09 09:45 | NUR ---
RN NOTES - PATIENT WAS BROUGHT TO MRI
[2022-04-09] MEDS: VANCOMYCIN 1 GM in IV D5W 250ml IV SCH ×2 (11:19→21:43)
[2022-04-09] MEDS ORDERED: POTASSIUM CHLORIDE 20 MEQ TAB.PRT.SR PO ONE (11:30)
[2022-04-09 12:00] VITALS: BP 158/79
[2022-04-09] MEDS: IV NS 0.9% 1,000 ML IV PRN (15:39)
[2022-04-09 16:02] VITALS: BP 130/76
--- NOTE | 2022-04-09 16:45 | NUR ---
RN NOTES - LEFT HAND 22#G SALINE LOCK IV ACCESS REMOVED PER PATIENT'S REQUEST. NO BLEEDING NOTED, PRESSURE GAUZE APPLIED.
--- NOTE | 2022-04-09 19:00 | NUR ---
RN OPENING NOTES PT IS AWAKE, A/O X 4, ABLE TO MAKE NEEDS KNOWN. ORIENTED TO STAFF AND UNIT. PT IN RA, TOLERATING WELL, BREATHING EVEN,& UNLABORED AT THIS TIME. PT IV ACCESS IS AT SMOOTH ML RUNNING NS @ 75 ML/HR, INTACT, PATENT & FLUSHES WELL. PT EXTERNAL ASSISTANT MANAGER TRAINEE WITH READING SR WITH PVC. SKIN IS WARM & DRY. SAFETY MEASURES INITIATED, BED PLACED IN LOWEST, LOCKED POSITION, SIDERAILS X 2, BEDSIDE TABLE AND CALL LIGHT IN EASY REACH. TO CONTINUE TO MONITOR PT ACCORDINGLY.
--- NOTE | 2022-04-09 19:15 | NUR ---
AIRCRAFT MACHINIST HELPER CLOSING NOTES PT IN BED WITH HOB ELEVATED, A/OX 4, ABLE TO MAKE NEEDS KNOWN, ON ROOM AIR WITHOUT DIFFICULTY. TELEMONITORING SHOWING SR 93. IV ACCESS THROUGH MIDLINE ON SMOOTH, INTACT RUNNING NS @75 ML /HR. ON PUREWICK, INTACT AND DRAINING LIGHTYELLOW COLORED URINE. ALL DUE MEDS GIVEN, ALL NEEDS MET. SAFETY PRECAUTIONS MAINTAINED: BED IN THE LOWEST AND LOCKED POSITION AND SIDE RAILS UP X 2, CALL LIGHT AND TRAY TABLE WITHIN EASY REACH REACH. WILL ENDORSE TO DREDGING INSPECTOR NURSE.
[2022-04-09 20:00] VITALS: BP 134/62
[2022-04-09] MEDS: CEFEPIME 1 GM in IV D5W 50 ML IV SCH (23:52)
[2022-04-10] VITALS (8 sets, daily range): BP systolic 113–147; BP diastolic 51–75
--- NOTE | 2022-04-10 06:35 | NUR ---
RN CLOSING NOTES PT IS DOZING INTERMITTENLY . RESPOSNIVE AND FOLLOWS VERBAL COMMAND. A/O X 3. PT ON CPAP 100% PORTEX 7.0, Fi02 35, PEEP 5. NO S/S OF RESPIRATORY DISTRESS NOTED. ON TELE MONITOR SR HR 84. IV SITE RLA #22G SL. G-TUBE IN PLACE, PATENT WITH NO RESIDUAL.PT JACINTO CATH IS IN PLACED DRANING YELLOW COLORED URINE. MEDICATION ADMINISTERED ACCORDINGLY PER MD'S ORDER. SAFETY MEASURES IS MAINTAINED. BED AT ITS LOWEST AND LOCKED POSITION, SIDERAILS X 2, BEDSIDE TABLE AND CALL LIGHT IN EASY REACH. TO ENDORSE TO THE NEXT SHIFT FOR CONTINUITY OF CARE.
[2022-04-10 06:54] LABS: BASOPHILS % (AUTO) 0.4 % (0.0-2.0); EOSINOPHILS % (AUTO) 3.4 % (0.0-6.0); HEMATOCRIT 31 % (33-45); LYMPHOCYTES # (AUTO) 0.7 K/uL (0.8-4.8); LYMPHOCYTES % (AUTO) 10.5 % (20.0-44.0); MEAN CORPUSCULAR HGB CONC 32 g/dl (31.0-36.0); MEAN CORPUSCULAR VOLUME 81 fL (82-100); MONOCYTES # (AUTO) 0.7 K/uL (0.1-1.30); MONOCYTES % (AUTO) 11.6 % (2.0-12.0); NEUTROPHILS # (AUTO) 4.7 K/uL (1.8-8.9); NEUTROPHILS % (AUTO) 74.1 % (43.0-81.0); PLATELET COUNT (AUTO) 152 K/uL (150-450); RED BLOOD CELL COUNT(AUTO) 3.87 MIL/uL (4.0-5.2); WHITE BLOOD COUNT (AUTO) 6.4 K/uL (4.3-11.0)
[2022-04-10] MEDS: IV NS 0.9% 1,000 ML IV PRN ×2 (06:57→22:09)
[2022-04-10 07:15] LABS: CALCIUM, SERUM 7.9 mg/dL (8.5-10.1); CREATININE 0.7 mg/dL (0.6-1.3); MAGNESIUM 2.1 mg/dL (1.8-2.4); PHOSPHORUS 3.1 mg/dL (2.5-4.9); POTASSIUM 3.2 mmol/L (3.5-5.1)
--- NOTE | 2022-04-10 07:25 | NUR ---
CAKE PRESS OPERATOR OPENING NOTES RECEIVED PT IN BED, A/OX 4, VATICAN CITIZEN/HONDURAN SPEAKINH, ABLE TO MAKE NEEDS KNOWN, ON ROOM AIR WITHOUT DIFFICULTY. TELEMONITORING SHOWING SR 89 BPM. NOT IN ANY APPARENT SOB OR DISTRESS NOTED, DENIES COMPLAINTS OF PAIN OR DISCOMFORT AT THIS TIME. PATIENT FOR POSSIBLE SURGERY TODAY, WAS ON NPO SINCE MIDNIGHT. WILL CLARIFY WITH SURGERY. IV ACCESS THROUGH MIDLINE ON SMOOTH, INTACT RUNNING NS @75 ML /HR. ON PURE WICK, INTACT AND DRAINING LIGHT YELLOW COLORED URINE. SAFETY PRECAUTIONS IN PLACE. BED IN THE LOWEST AND LOCKED POSITION AND SIDE RAILS UP X 2, CALL LIGHT AND TRAY TABLE WITHIN EASY REACH REACH. WILL CONTINUE TO MONITOR.
--- NOTE | 2022-04-10 08:16 | NUR ---
RN NOTES - PATIENT PLACED ON NPO FOR SURGERY, ORDERS PLACED.
[2022-04-10] MEDS: PROSOURCE / PROSTAT (PYXIS) 30 ML UDC PO SCH ×3 (09:00→17:26)
[2022-04-10] MEDS: CARVEDILOL 6.25 MG TABLET PO SCH ×2 (09:06→17:27)
[2022-04-10] MEDS: CLOPIDOGREL BISULFATE 75 MG TABLET PO SCH (09:06)
[2022-04-10] MEDS: VANCOMYCIN 1 GM in IV D5W 250ml IV SCH (09:18)
[2022-04-10] MEDS: POVIDONE-IODINE OINT 28.4 GM TUBE TP SCH ×2 (09:44→17:00)
--- NOTE | 2022-04-10 10:17 | NUR ---
RN NOTES - PATIENT SIGNED CONSENTS FOR THE PROCEDURE - Right hallux amputation. Right lower extremity debridement with allograft application AND WAS BROUGHT TO THE OR FOR THE OPERATION AT 1000 VIA HER BED.
[2022-04-10] MEDS: POTASSIUM CL. PREMIX PERIPHER. 50 ML IV SCH ×4 (10:34→13:41)
[2022-04-10] MEDS ORDERED: LIDOCAINE HCL/MPF 1% 30 ML VIAL IJ ONE (10:54)
[2022-04-10] MEDS ORDERED: FENTANYL PF 250MCG/5ML AMPUL ONE (11:10)
[2022-04-10] MEDS ORDERED: MIDAZOLAM HCL 2 MG/2ML VIAL ONE (11:10)
[2022-04-10] MEDS ORDERED: FAMOTIDINE/PF INJ 20 MG/2 ML VIAL IV ONE (11:11)
--- NOTE | 2022-04-10 12:35 | NUR ---
RN NOTES - PT BACK FROM OR S/P R HALLUX AMPUTATION, R LOWER EXTREMITY DEBRIDEMENT WITH ALLOGRAFT APPLICATION. R LEG IS WRAPPED WITH GAUZE, NO BLEEDING NOTED, NO PAIN PER PATIENT REPORT. VS TAKEN AND RECORDED, STABLE. WILL CONTINUE TO MONITOR/
[2022-04-10] MEDS: HYDROCODONE/APAP 10/325MG TABLET PO PRN (13:50)
--- NOTE | 2022-04-10 13:50 | NUR ---
RN NOTES - POST OP PAIN OF 10, PATIENT ASKED FOR PAIN MEDS - GIVEN NORCO 10/325 PO ORDERED. WILL CONTINUE TO MONITOR.
--- NOTE | 2022-04-10 19:15 | NUR ---
LACE AND TEXTILES RESTORER CLOSING NOTES PT IN BED WITH HOB ELEVATED, A/OX 4, ABLE TO MAKE NEEDS KNOWN, ON ROOM AIR WITHOUT DIFFICULTY. TELEMONITORING SHOWING SR 89. S/P R TOE AMPUTATION AND LEG WOUND DEBRIDEMENT, GAUZE INTACT. STILL WITH IV ACCESS THROUGH MIDLINE ON SMOOTH, INTACT RUNNING NS @75 ML /HR. ON PUREWICK, INTACT AND DRAINING LIGHT YELLOW COLORED URINE. DENIES PAIN OF THE MOMENT. ALL DUE MEDS GIVEN, ALL NEEDS MET. SAFETY PRECAUTIONS MAINTAINED: BED IN THE LOWEST AND LOCKED POSITION AND SIDE RAILS UP X 2, CALL LIGHT AND TRAY TABLE WITHIN EASY REACH REACH. WILL ENDORSE TO AIR LIAISON AND SPECIAL STAFF NURSE.
--- NOTE | 2022-04-10 19:45 | NUR ---
TECHNICIAN AUTOMATED EQUIPMENT OPENING NOTES RECEIVED PT IN BED AWAKE, ALERT AND ORIENTED. A/OX 4. PATIENT IS BULGARIAN AND DUTCH SPEAKING. ABLE TO MAKE NEEDS KNOWN. ON ROOM AIR, BREATHING EVEN AND UNLABORED. PATIENT WITH TELE MONITOR SHOWING SR @ 90 BPM. DENIES COMPLAINTS OF PAIN OR DISCOMFORT AT THIS TIME. IV ACCESS THROUGH MIDLINE ON SMOOTH, INTACT RUNNING NS @75 ML /HR. ON PURE WICK, INTACT AND DRAINING LIGHT YELLOW COLORED URINE. SAFETY PRECAUTIONS IN PLACE. BED IN THE LOWEST AND LOCKED POSITION AND SIDE RAILS UP X 2, CALL LIGHT AND TRAY TABLE WITHIN EASY REACH REACH. WILL CONTINUE TO MONITOR.
[2022-04-10] MEDS: PIPERACILLIN /TAZOBACTAM 3.375 G in IV D5W 50 ML IV SCH (21:50)
[2022-04-11] VITALS: BP 100/51
[2022-04-11 04:00] VITALS: BP 102/51
[2022-04-11] MEDS: PIPERACILLIN /TAZOBACTAM 3.375 G in IV D5W 50 ML IV SCH ×3 (04:26→21:13)
[2022-04-11 05:50] LABS: BASOPHILS % (AUTO) 0.3 % (0.0-2.0); EOSINOPHILS % (AUTO) 1.5 % (0.0-6.0); HEMATOCRIT 27 % (33-45); HEMOGLOBIN 8.8 g/dL (11.5-14.8); LYMPHOCYTES # (AUTO) 0.7 K/uL (0.8-4.8); MEAN CORPUSCULAR HGB CONC 33 g/dl (31.0-36.0); MEAN CORPUSCULAR VOLUME 79 fL (82-100); NEUTROPHILS # (AUTO) 6.4 K/uL (1.8-8.9); NEUTROPHILS % (AUTO) 78.2 % (43.0-81.0); PLATELET COUNT (AUTO) 177 K/uL (150-450); RED BLOOD CELL COUNT(AUTO) 3.39 MIL/uL (4.0-5.2); WHITE BLOOD COUNT (AUTO) 8.2 K/uL (4.3-11.0)
[2022-04-11 06:20] VITALS: BP 131/51
[2022-04-11 06:34] LABS: PHOSPHORUS 3.2 mg/dL (2.5-4.9)
--- NOTE | 2022-04-11 07:29 | NUR ---
LEATHER TOOLER CLOSING NOTES PATIENT IN BED AWAKE, ALERT AND ORIENTED. A/OX 4. PATIENT IS POLISH AND RUSSIAN SPEAKING. ABLE TO MAKE NEEDS KNOWN. ON ROOM AIR, BREATHING EVEN AND UNLABORED. PATIENT WITH TELE MONITOR SHOWING SR WITH PAC @ 100 BPM. IV ACCESS THROUGH MIDLINE ON SMOOTH, INTACT RUNNING NS @75 ML /HR. ON PURE WICK, SUCTIONED 600ML, INTACT AND DRAINING LIGHT YELLOW COLORED URINE. DRESSING REINFORCED. SAFETY PRECAUTIONS MAINTAINED. BED IN THE LOWEST AND LOCKED POSITION AND SIDE RAILS UP X 2, CALL LIGHT AND TRAY TABLE WITHIN EASY REACH REACH. WILL ENDORSE TO THE NEXT SHIFT.
--- NOTE | 2022-04-11 07:30 | NUR ---
RN Opening Note Patient AOx4 able to express her concerns. States no pain,no discomfort. Discussed plan of care, pt verbalized agreement. All safety precautions taken, call light and table within reach, bed at lowest position. Will continue to monitor throughout shift.
[2022-04-11 08:00] VITALS: BP 110/55
[2022-04-11] MEDS: CLOPIDOGREL BISULFATE 75 MG TABLET PO SCH (09:43)
[2022-04-11] MEDS: POVIDONE-IODINE OINT 28.4 GM TUBE TP SCH ×2 (09:44→16:36)
[2022-04-11] MEDS: PROSOURCE / PROSTAT (PYXIS) 30 ML UDC PO SCH ×3 (09:44→16:34)
[2022-04-11] MEDS: CARVEDILOL 6.25 MG TABLET PO SCH ×2 (09:44→16:34)
[2022-04-11] MEDS: IV NS 0.9% 1,000 ML IV PRN (13:02)
[2022-04-11] MEDS ORDERED: APIXABAN 2.5 MG TABLET PO SCH (13:30)
[2022-04-11] MEDS ORDERED: RIVAROXABAN 15 MG TABLET PO SCH (14:00)
[2022-04-11] MEDS: RIVAROXABAN 10 MG TABLET PO SCH ×2 (15:12→16:35)
[2022-04-11 15:37] VITALS: BP 124/63
--- NOTE | 2022-04-11 18:07 | NUR ---
RN Closing Note RN closing note Patient AOx4, able to express her own concerns. Patient with no signs of distress, VSS Medications administered as prescribed, care, Wound care done by provider. All safety precautions taken, call light and table within reach, bed at lowest position. Will endorse to night nurse for continuity of care
--- NOTE | 2022-04-11 19:19 | NUR ---
PRECISION OPTICS TECHNICIAN OPENING NOTES; RECEIVED PT IN BED AA/OX 3 FRENCH SPEAKING A LITTLE UGANDAN,ON ROOM AIR LUIS F WELL SATTING 98%,NO SOB/DISTRESS NOTED,IV ACCESS ON SMOOTH ML RUNNING NS @75 ML /HR.RESTRAIN IN PLACE WITH GOOD CIRCULATION,NO SKIN BREAK DOWN NOTED, SAFETY PRECAUTIONS MAINTAINED: BED IN THE LOWEST AND LOCKED POSITION AND SIDE RAILS UP X 3, CALL LIGHT AND TRAY TABLE WITHIN EASY REACH REACH.WILL CONTINUE TO MONITOR. Addendum: 04/11/22 at 1934 by ELEUTERIO MARQUIS RN RN OPENING NOTE RECEIVED PT IN BED AAOX4 ABLE TO MAKE NEEDS KNOWN,ON RM AIR LUIS F WELL,NO SIGN SOB/DISTRESS NOTED,IV ACCESS ON SMOOTH ML WITH NS 75ML/HR LUIS F WELL,NO COMPLAIN OF PAIN /DISCOMFORT AT THIS TIME,SAFETY MEASURE IN PLACE,CALL LIGHT WITHIN REACH,WILL CONTINUE TO MONITOR.
[2022-04-12] VITALS: BP 121/55
[2022-04-12 04:00] VITALS: BP 134/66
[2022-04-12] MEDS: PIPERACILLIN /TAZOBACTAM 3.375 G in IV D5W 50 ML IV SCH ×3 (04:24→21:24)
[2022-04-12] MEDS: IV NS 0.9% 1,000 ML IV PRN (04:42)
[2022-04-12 06:18] LABS: CALCIUM, SERUM 7.9 mg/dL (8.5-10.1); CREATININE 0.7 mg/dL (0.6-1.3)
[2022-04-12 06:22] LABS: BASOPHILS % (AUTO) 0.3 % (0.0-2.0); EOSINOPHILS % (AUTO) 2.8 % (0.0-6.0); HEMATOCRIT 26 % (33-45); HEMOGLOBIN 8.3 g/dL (11.5-14.8); LYMPHOCYTES # (AUTO) 0.6 K/uL (0.8-4.8); LYMPHOCYTES % (AUTO) 9.5 % (20.0-44.0); MEAN CORPUSCULAR HGB CONC 32 g/dl (31.0-36.0); MEAN CORPUSCULAR VOLUME 80 fL (82-100); MONOCYTES # (AUTO) 0.6 K/uL (0.1-1.30); MONOCYTES % (AUTO) 10.7 % (2.0-12.0); NEUTROPHILS # (AUTO) 4.5 K/uL (1.8-8.9); NEUTROPHILS % (AUTO) 76.7 % (43.0-81.0); PLATELET COUNT (AUTO) 145 K/uL (150-450); RED BLOOD CELL COUNT(AUTO) 3.18 MIL/uL (4.0-5.2); WHITE BLOOD COUNT (AUTO) 5.8 K/uL (4.3-11.0)
--- NOTE | 2022-04-12 06:35 | NUR ---
RN CLOSING NOTE; PT IN BED AAOX4 ABLE TO MAKE NEEDS KNOWN,ON RM AIR LUIS F WELL,NO SIGN SOB/DISTRESS NOTED,DUE MEDS GIVEN ORDER,ALL NEEDS ATTENDED,IV ACCESS ON SMOOTH ML WITH NS 75ML/HR LUIS F WELL,NO COMPLAIN OF PAIN /DISCOMFORT AT THIS TIME,SAFETY MEASURE IN PLACE,CALL LIGHT WITHIN REACH,WILL ENDORSED TO NEXT SHIFT.
[2022-04-12 06:40] LABS: POTASSIUM 2.8 mmol/L (3.5-5.1)
--- NOTE | 2022-04-12 06:50 | NUR ---
RN NOTE; PT POTASSIUM LEVEL 2.8, HYDROGEN TREATERDanis WILSONWAS INFORM.NOT RESPONSE YET
--- NOTE | 2022-04-12 07:30 | NUR ---
RN Opening Note Patient AOx4 able to express her concerns. States no pain,no discomfort. Discussed plan of care, pt verbalized agreement. States she wants to go home with Home Health. All safety precautions taken, call light and table within reach, bed at lowest position. Will continue to monitor throughout shift.
[2022-04-12 08:00] VITALS: BP 118/64
[2022-04-12] MEDS ORDERED: POTASSIUM CHLORIDE 20 MEQ TAB.PRT.SR PO ONE (08:00)
[2022-04-12] MEDS: CLOPIDOGREL BISULFATE 75 MG TABLET PO SCH (08:37)
[2022-04-12] MEDS: RIVAROXABAN 10 MG TABLET PO SCH ×2 (08:37→16:42)
[2022-04-12] MEDS: POVIDONE-IODINE OINT 28.4 GM TUBE TP SCH ×2 (08:38→16:42)
[2022-04-12] MEDS: PROSOURCE / PROSTAT (PYXIS) 30 ML UDC PO SCH ×3 (08:38→16:40)
[2022-04-12] MEDS: CARVEDILOL 6.25 MG TABLET PO SCH ×2 (08:41→16:42)
[2022-04-12 12:00] VITALS: BP 110/57
[2022-04-12 16:00] VITALS: BP 107/67
--- NOTE | 2022-04-12 18:20 | NUR ---
RN closing note Patient AOx4, able to express her own concerns. Patient with no signs of distress, VSS Medications administered as prescribed, care provided as needed. All safety precautions taken, call light and table within reach, bed at lowest position. Will endorse to night nurse for continuity of care
--- NOTE | 2022-04-12 19:28 | NUR ---
DIE SET UP WORKER OPENING NOTES; RECEIVED PT IN BED AWAKE A/OX 4. PATIENT IS [place]GI[place] AND OCCITAN SPEAKING. ABLE TO MAKE NEEDS KNOWN. ON ROOM AIR LUIS F WELL,SATTING 98%,NO SOB/DISTRESS NOTED,BREATHING EVEN AND UNLABORED.DENIES COMPLAINTS OF PAIN OR DISCOMFORT AT THIS TIME. IV ACCESS THROUGH MIDLINE ON SMOOTH, INTACT RUNNING NS @75 ML /HR. ON PURE WICK, INTACT AND DRAINING LIGHT YELLOW COLORED URINE. SAFETY PRECAUTIONS IN PLACE. BED IN THE LOWEST AND LOCKED POSITION AND SIDE RAILS UP X 2, CALL LIGHT AND TRAY TABLE WITHIN EASY REACH, WILL CONTINUE TO MONITOR.
[2022-04-12 20:00] VITALS: BP 145/73
[2022-04-13 00:36] VITALS: BP 135/67
[2022-04-13] MEDS: PIPERACILLIN /TAZOBACTAM 3.375 G in IV D5W 50 ML IV SCH ×2 (04:21→12:20)
--- NOTE | 2022-04-13 06:10 | NUR ---
RN CLOSING NOTE; PT IN BED AAOX4 ABLE TO MAKE NEEDS KNOWN,ON RM AIR LUIS F WELL,NO SIGN SOB/DISTRESS NOTED,NO COMPLAINED OF PAIN/DISCOMFORT DURING SHIFT,DUE MEDS GIVEN ORDER,ALL NEEDS ATTENDED,IV ACCESS ON SMOOTH ML PATENT AND INTACT,SAFETY MEASURE IN PLACE,CALL LIGHT WITHIN REACH,WILL ENDORSED TO NEXT SHIFT.
[2022-04-13 06:32] LABS: CALCIUM, SERUM 7.9 mg/dL (8.5-10.1); CREATININE 0.6 mg/dL (0.6-1.3); POTASSIUM 3.4 mmol/L (3.5-5.1)
--- NOTE | 2022-04-13 07:25 | NUR ---
UNDERWRITER SOLICITATION DIRECTOR NOTES PT IN BED, ASLEEP, EASY TO AROUSE, NO SIGN OF PAIN, NOT IN DISTRESS, CALL LIGHT WITHIN REACH, KEPT WARM AND COMFORTABLE.
[2022-04-13] MEDS ORDERED: POTASSIUM CHLORIDE 20 MEQ TAB.PRT.SR PO ONE (07:30)
--- NOTE | 2022-04-13 07:53 | NUR ---
CLOTHESPIN DRIER OPERATOR NOTES PT SEEN AND EXAMINED BY DR. JAY, PLAN OF CARE DISCUSSED WITH PT INCLUDIN DISCHARGE PLAN, VERBALIZED UNDERSTANDING.
[2022-04-13] MEDS: RIVAROXABAN 10 MG TABLET PO SCH (08:15)
[2022-04-13] MEDS: CARVEDILOL 6.25 MG TABLET PO SCH (08:15)
[2022-04-13] MEDS: CLOPIDOGREL BISULFATE 75 MG TABLET PO SCH (08:15)
[2022-04-13] MEDS: PROSOURCE / PROSTAT (PYXIS) 30 ML UDC PO SCH ×2 (08:17→12:22)
[2022-04-13] MEDS: POVIDONE-IODINE OINT 28.4 GM TUBE TP SCH (08:23)
[2022-04-13] MEDS ORDERED: AMOX-430 PO (08:44)
[2022-04-13] MEDS ORDERED: CLOP75TA15 PO (08:44)
[2022-04-13] MEDS ORDERED: RIVA10TA PO (08:44)
[2022-04-13] MEDS ORDERED: HYDR-3972 PO (08:44)
[2022-04-13 09:02] VITALS: BP 139/81
--- NOTE | 2022-04-13 16:27 | NUR ---
OLIVE GRADER NOTES PT AWAKE, ALERT AND ORIENTED, SITTING IN BED, NO COMPLAINT OF PAIN, NOT IN DISTRESS, CALL LIGHT WITHIN REACH, DISCHARGE AND MEDICATION INSTRUCTIONS PROVIDED TO PT, VERBALIZED UNDERSTANDING, PER DR. NESS, MAY LEAVE DRESSINGS TO RIGHT LEG INTACT UNTIL SEEN AT THE WOUND CENTER SCHEDULED ON SaturdayAPR 18, PT AWARE AND VERBALIZED UNDERSTANDING, DRESSING DRY AND INTACT TO RIGHT LEG, BELONGINGS ACCOUNTED FOR, PT'S NEW PRESCRIPTION SENT ELEVTRONICALLY TO PT'S OWN PHARMACY OF CHOICE, ASSISTED TO WHEELCHAIR, ASSISTED TO HOSPITAL LOBBY WITH ALL BELONGINGS INCLUDING CELLPHONE, PICKED UP BY HER BROTHER, LEFT VIA TAXI, IN STABLE CONDITION.
== END 2022-04-13 18:30 | disposition home health service (06) | DRG 253 ==
LOC: MED 19:36 → ICU 04-04 18:12 → TELE 04-05 12:38
PROVIDERS: ADMIT Nurse Practitioner Acute Care; ATTEND Internal Medicine
PROC: 047M35Z Dilation of Right Popliteal Artery with Two Drug-eluting Intraluminal Devices, Percutaneous Approach (ICD-10-PCS; principal; 2022-04-04)
PROC: 047K3ZZ Dilation of Right Femoral Artery, Percutaneous Approach (ICD-10-PCS; 2022-04-04)
PROC: B41DYZZ Fluoroscopy of Aorta and Bilateral Lower Extremity Arteries using Other Contrast (ICD-10-PCS; 2022-04-04)
PROC: 05HB33Z Insertion of Infusion Device into Right Basilic Vein, Percutaneous Approach (ICD-10-PCS; 2022-04-04)
PROC: 0Y6P0Z2 Detachment at Right 1st Toe, Mid, Open Approach (ICD-10-PCS; 2022-04-10)
PROC: 0J8N0ZZ Division of Right Lower Leg Subcutaneous Tissue and Fascia, Open Approach (ICD-10-PCS; 2022-04-10)
PROC: 0KBS0ZZ Excision of Right Lower Leg Muscle, Open Approach (ICD-10-PCS; 2022-04-10)
PROC: 0HRKXK3 Replacement of Right Lower Leg Skin with Nonautologous Tissue Substitute, Full Thickness, External Approach (ICD-10-PCS; 2022-04-10)
DX: I70.268 Atherosclerosis of native arteries of extremities with gangrene, other extremity (principal); I70.92 Chronic total occlusion of artery of the extremities; M86.8X7 Other osteomyelitis, ankle and foot; L03.115 Cellulitis of right lower limb; L02.415 Cutaneous abscess of right lower limb; L97.319 Non-pressure chronic ulcer of right ankle with unspecified severity; I25.10 Atherosclerotic heart disease of native coronary artery without angina pectoris; E87.6 Hypokalemia; I10 Essential (primary) hypertension; D63.8 Anemia in other chronic diseases classified elsewhere; E66.9 Obesity, unspecified; Z68.28 Body mass index [BMI] 28.0-28.9, adult; B95.2 Enterococcus as the cause of diseases classified elsewhere; Z88.6 Allergy status to analgesic agent; Z79.02 Long term (current) use of antithrombotics/antiplatelets; Z79.899 Other long term (current) drug therapy; Z79.01 Long term (current) use of anticoagulants; L98.493 Non-pressure chronic ulcer of skin of other sites with necrosis of muscle; I70.261 Atherosclerosis of native arteries of extremities with gangrene, right leg
CPT/HCPCS: 36246; 36415; 37221; 37230; 73630-TC; 73718-TC; 75625; 80048-TC; 80202-TC; 83735-TC; 84100-TC; 85025-TC; 85347; 85610-TC; 85730-TC; 87081-TC; 92526; 92611-TC; A4223; A6253; A6403; C1725; C1769; C1887; C1894; G0378; G0500; J0360; J0461; J0690; J0692; J1644; J2250; J2270; J2405; J2543; J2704; J2765; J3010; J3370; J3480; J3490; J7030; J7040; J7060; Q4100; Q9967

== ENCOUNTER → 2022-04-18 | Outpatient (CLI) | payer MEDICARE, OTHER ==
[~2022-04-18] MED LIST: AMOX-430 PO; CARV6.252 PO; CLOP75TA15 PO; HYDR-3972 PO; RIVA10TA PO
== END | disposition home health service (06) ==
LOC: WOU 12:55
PROVIDERS: ATTEND Podiatrist Foot & Ankle Surgery
DX: I96 Gangrene, not elsewhere classified (principal); L97.213 Non-pressure chronic ulcer of right calf with necrosis of muscle; L97.313 Non-pressure chronic ulcer of right ankle with necrosis of muscle; L97.516 Non-pressure chronic ulcer of other part of right foot with bone involvement without evidence of necrosis; M86.671 Other chronic osteomyelitis, right ankle and foot; Z79.02 Long term (current) use of antithrombotics/antiplatelets
CPT/HCPCS: 11044; 11047; A6197

== ENCOUNTER 2022-04-25 12:30 | Outpatient (CLI) | payer MEDICARE, OTHER ==
[2022-04-25] MEDS ORDERED: LIDOCAINE SOLN 4% 50 ML BOTTLE ONE (12:47)
[2022-04-25] MEDS ORDERED: DAKINS HALF STRENGTH (0.25%) 480 ML BOTTLE ONE (13:18)
== END 2022-04-25 23:59 | disposition home health service (06) ==
LOC: WOU 12:30
PROVIDERS: ATTEND Podiatrist Foot & Ankle Surgery
DX: I96 Gangrene, not elsewhere classified (principal); L97.316 Non-pressure chronic ulcer of right ankle with bone involvement without evidence of necrosis; L97.216 Non-pressure chronic ulcer of right calf with bone involvement without evidence of necrosis; L97.514 Non-pressure chronic ulcer of other part of right foot with necrosis of bone; M86.671 Other chronic osteomyelitis, right ankle and foot; Z79.02 Long term (current) use of antithrombotics/antiplatelets
CPT/HCPCS: 11044; 11046; 11043; A6197

== ENCOUNTER 2022-05-02 13:07 | Outpatient (CLI) | payer MEDICARE, OTHER | END 2022-05-02 23:59 | disposition home health service (06) | LOC: WOU 13:07 | PROVIDERS: ATTEND Podiatrist Foot & Ankle Surgery | DX: I96 Gangrene, not elsewhere classified (principal); L97.516 Non-pressure chronic ulcer of other part of right foot with bone involvement without evidence of necrosis; L97.213 Non-pressure chronic ulcer of right calf with necrosis of muscle; L97.313 Non-pressure chronic ulcer of right ankle with necrosis of muscle; M86.671 Other chronic osteomyelitis, right ankle and foot; Z79.02 Long term (current) use of antithrombotics/antiplatelets | CPT/HCPCS: 11043; 87070; 11046; A6197 ==

== ENCOUNTER 2022-05-04 11:25 | Outpatient (CLI) | payer MEDICARE, OTHER | END 2022-05-04 23:59 | disposition home health service (06) | LOC: WOU 11:25 | PROVIDERS: ATTEND Podiatrist Foot & Ankle Surgery | DX: I96 Gangrene, not elsewhere classified (principal); L97.313 Non-pressure chronic ulcer of right ankle with necrosis of muscle; L97.213 Non-pressure chronic ulcer of right calf with necrosis of muscle; L97.516 Non-pressure chronic ulcer of other part of right foot with bone involvement without evidence of necrosis; M86.671 Other chronic osteomyelitis, right ankle and foot; B96.6 Bacteroides fragilis [B. fragilis] as the cause of diseases classified elsewhere; I10 Essential (primary) hypertension; Z79.02 Long term (current) use of antithrombotics/antiplatelets | CPT/HCPCS: 11043; 11046; A6197 ==

== ENCOUNTER 2022-05-15 11:26 | Outpatient (CLI) | payer MEDICARE, OTHER | END 2022-05-15 23:59 | disposition home health service (06) | LOC: WOU 11:26 | PROVIDERS: ATTEND Podiatrist Foot & Ankle Surgery | DX: I96 Gangrene, not elsewhere classified (principal); L97.216 Non-pressure chronic ulcer of right calf with bone involvement without evidence of necrosis; L97.316 Non-pressure chronic ulcer of right ankle with bone involvement without evidence of necrosis; L97.516 Non-pressure chronic ulcer of other part of right foot with bone involvement without evidence of necrosis; M86.671 Other chronic osteomyelitis, right ankle and foot; Z79.02 Long term (current) use of antithrombotics/antiplatelets | CPT/HCPCS: 11043 ==

== ENCOUNTER → 2022-05-22 | Outpatient (CLI) | payer MEDICARE, OTHER | END | disposition home health service (06) | LOC: WOU 11:02 | PROVIDERS: ATTEND Podiatrist Foot & Ankle Surgery | DX: I96 Gangrene, not elsewhere classified (principal); L97.313 Non-pressure chronic ulcer of right ankle with necrosis of muscle; L97.213 Non-pressure chronic ulcer of right calf with necrosis of muscle; L97.514 Non-pressure chronic ulcer of other part of right foot with necrosis of bone; M86.671 Other chronic osteomyelitis, right ankle and foot; Z79.02 Long term (current) use of antithrombotics/antiplatelets | CPT/HCPCS: 11043; 11046; A6197 ==

== ENCOUNTER 2022-05-29 12:46 | Outpatient (CLI) | payer MEDICARE, OTHER | END 2022-05-29 23:59 | disposition home health service (06) | LOC: WOU 12:46 | PROVIDERS: ATTEND Podiatrist Foot & Ankle Surgery | DX: I96 Gangrene, not elsewhere classified (principal); M86.671 Other chronic osteomyelitis, right ankle and foot; L97.816 Non-pressure chronic ulcer of other part of right lower leg with bone involvement without evidence of necrosis; L97.512 Non-pressure chronic ulcer of other part of right foot with fat layer exposed; Z79.02 Long term (current) use of antithrombotics/antiplatelets | CPT/HCPCS: 11043; 11042; 11046; A6197 ==

== ENCOUNTER 2022-06-15 09:46 | Outpatient (CLI) | payer MEDICARE, OTHER ==
[~2022-06-15 09:46] MED LIST changes: +LIDOCAINE SOLN 4% 50 ML BOTTLE ONE
== END 2022-06-15 23:59 | disposition home health service (06) ==
LOC: WOU 09:46
PROVIDERS: ATTEND Podiatrist Foot & Ankle Surgery
DX: I87.2 Venous insufficiency (chronic) (peripheral) (principal); L97.816 Non-pressure chronic ulcer of other part of right lower leg with bone involvement without evidence of necrosis; L97.316 Non-pressure chronic ulcer of right ankle with bone involvement without evidence of necrosis; L97.512 Non-pressure chronic ulcer of other part of right foot with fat layer exposed; M86.671 Other chronic osteomyelitis, right ankle and foot
CPT/HCPCS: 11042; 11043

== ENCOUNTER 2022-06-29 10:53 | Outpatient (CLI) | payer MEDICARE, OTHER ==
[~2022-06-29 10:53] MED LIST changes: -LIDOCAINE SOLN 4% 50 ML BOTTLE ONE
[2022-06-29] MEDS ORDERED: LIDOCAINE SOLN 4% 50 ML BOTTLE ONE (11:13)
== END 2022-06-29 23:59 | disposition home health service (06) ==
LOC: WOU 10:53
PROVIDERS: ATTEND Podiatrist Foot & Ankle Surgery
DX: I87.2 Venous insufficiency (chronic) (peripheral) (principal); L97.212 Non-pressure chronic ulcer of right calf with fat layer exposed; L97.312 Non-pressure chronic ulcer of right ankle with fat layer exposed; L97.512 Non-pressure chronic ulcer of other part of right foot with fat layer exposed; M86.671 Other chronic osteomyelitis, right ankle and foot; Z79.02 Long term (current) use of antithrombotics/antiplatelets
CPT/HCPCS: 11043; 11046; A6402

== ENCOUNTER 2022-07-10 10:34 | Outpatient (CLI) | payer MEDICARE, OTHER ==
[2022-07-10] MEDS ORDERED: SILVER NITRATE APPLICATOR 1 EA BOX ONE (11:06)
== END 2022-07-10 23:59 | disposition home health service (06) ==
LOC: WOU 10:34
PROVIDERS: ATTEND Podiatrist Foot & Ankle Surgery
DX: I87.2 Venous insufficiency (chronic) (peripheral) (principal); L97.313 Non-pressure chronic ulcer of right ankle with necrosis of muscle; L97.213 Non-pressure chronic ulcer of right calf with necrosis of muscle; L97.512 Non-pressure chronic ulcer of other part of right foot with fat layer exposed; M86.671 Other chronic osteomyelitis, right ankle and foot; Z79.02 Long term (current) use of antithrombotics/antiplatelets
CPT/HCPCS: 11043; 11046; A6207

== ENCOUNTER 2022-07-27 09:32 | Outpatient (CLI) | payer MEDICARE, OTHER ==
[2022-07-27] MEDS ORDERED: UREA 10% -AHA 4% CREAM 57 GM TUBE ONE (09:59)
== END 2022-07-27 23:59 | disposition home health service (06) ==
LOC: WOU 09:32
PROVIDERS: ATTEND Podiatrist Foot & Ankle Surgery
DX: I87.2 Venous insufficiency (chronic) (peripheral) (principal); L97.815 Non-pressure chronic ulcer of other part of right lower leg with muscle involvement without evidence of necrosis; M86.671 Other chronic osteomyelitis, right ankle and foot
CPT/HCPCS: 11042; 11045; A6197; A6207

== ENCOUNTER 2022-12-07 10:05 | Outpatient (CLI) | payer MEDICARE, OTHER ==
[~2022-12-07 10:05] MED LIST changes: +COLLAGENASE 5 GM TUBE UD TP ONE; +LIDOCAINE SOLN 4% 50 ML BOTTLE ONE
== END 2022-12-07 23:59 | disposition home health service (06) ==
LOC: WOU 10:05
PROVIDERS: ATTEND Podiatrist Foot & Ankle Surgery
DX: E11.622 Type 2 diabetes mellitus with other skin ulcer (principal); L97.212 Non-pressure chronic ulcer of right calf with fat layer exposed; Z79.02 Long term (current) use of antithrombotics/antiplatelets
CPT/HCPCS: 11042; A6253